=== PATIENT | male | born 1980 | race Caucasian/White ===

== ENCOUNTER 2024-12-08 16:12 | Emergency (ER) | payer SELFPAY ==
[~2024-12-08] VITALS: Ht 180.3 cm; Wt 72.0 kg
[2024-12-08 16:15] VITALS: O2SAT 99
[2024-12-08 16:20] VITALS: BP 127/78; PULSE 105; RESP 18; TEMP 37; O2SAT 99
[2024-12-08] MEDS ORDERED: L10 MT (18:22)
[2024-12-08] MEDS ORDERED: OLAN15TA97 MT (18:22)
[2024-12-08] MEDS ORDERED: LEVE750T4 MT (18:22)
== END 2024-12-08 18:30 | disposition home or self-care (01) ==
LOC: ER 16:12
DX: R56.9 Unspecified convulsions (principal); E11.9 Type 2 diabetes mellitus without complications; F41.9 Anxiety disorder, unspecified; Z76.0 Encounter for issue of repeat prescription; Z00.00 Encounter for general adult medical examination without abnormal findings; Z98.890 Other specified postprocedural states; Z86.59 Personal history of other mental and behavioral disorders
CPT/HCPCS: 99281